=== PATIENT | male | born 1950 | race Caucasian/White ===

== ENCOUNTER 2019-03-15 06:58 | Inpatient (IN) | payer MEDICARE, OTHER ==
--- NOTE | 2019-03-11 11:12 | HPE ---
DATE OF ADMISSION: 03/15/2019 ATTENDING PHYSICIAN: Dr. Earl Zabala CHIEF COMPLAINT: Right knee pain and stiffness. HISTORY: The patient is a 68-year-old male with progressively worsening right knee pain and stiffness. He has failed to improve with conservative measures. He continues to have symptoms with weightbearing activities and activities of daily living. The patient has consented for an elective right total knee arthroplasty with Dr. Zabala for his continued symptoms. Medical optimization completed with Dr. Ryan Gonzalez and was available for review. CURRENT MEDICATIONS: - amlodipine 10 mg daily - glipizide 5 mg daily - cranberry 500 mg daily - fish oil 1000 mg daily - Keflex 500 mg daily - nystatin/triamcinolone cream twice daily as needed. ALLERGIES: SULFA DRUGS. CHRONIC MEDICAL CONDITIONS: Diabetes. Hypertension. History of peripheral stem cell transplant. Hyperlipidemia. Benign prostatic hyperplasia. PAST SURGICAL HISTORY: Hernia repair. Skin removal for cancerous lesion on scalp. Right total hip arthroplasty. SOCIAL HISTORY: The patient is a nonsmoker and occasionally uses alcohol. He does live at home with spouse. REVIEW OF SYSTEMS: The patient denies fevers, chills, nausea, vomiting or diarrhea. Denies chest pain, shortness of breath, lightheadedness, dizziness or headaches. Denies any abdominal pain. Denies any recent upper respiratory or urinary tract infection symptoms. The patient does continue to have right knee pain with weightbearing activities and activities of daily living. PHYSICAL EXAMINATION: GENERAL: Well-nourished, well-developed male in no apparent distress. He is alert, oriented and cooperative. Mood and affect are appropriate. VITAL SIGNS: Height 5 feet 10 inches, weight 246 pounds, temperature 97.3, blood pressure 140/72, heart rate 62, respirations 18. NECK: Supple without lymphadenopathy. HEART: Regular rate and rhythm. LUNGS: Clear to auscultation bilaterally. ABDOMEN: Bowel sounds are present. Abdomen is soft and nontender to palpation. MUSCULOSKELETAL: Right knee exhibits no gross abnormalities. There is no tenderness to palpation. The patient has full extension of the right knee but can only flex to approximately 100 degrees. Right lower extremity strength is 5/5. No hip irritability elicited with range of motion testing. The patient's calf is soft, nontender to palpation with no palpable cords noted. He is neurovascularly intact distally. LABORATORY DATA: Chest x-ray: No acute cardiopulmonary disease, chronic obstructive pulmonary disease (COPD). EKG: Sinus rhythm. Prothrombin time 14.1, INR 1.12. Complete blood count: ESR elevated at 27, WBC 9.5, RBC 4.66, hemoglobin 14.6, hematocrit 42.5, platelets 206. Comprehensive metabolic profile: Fasting glucose elevated at 146, BUN 16, creatinine 0.84, GFR greater than 60, sodium 142, potassium 3.5, chloride 106, carbon dioxide 30, anion gap decreased at 6, calcium 9.2, AST 24, ALT 42, alkaline phosphatase 70, total bilirubin 0.5, total protein 7.1, albumin 3.7, albumin-globulin ratio 1.09. IMPRESSION: Right knee osteoarthritis with x-rays notable for end-stage degenerative changes. PLAN: The patient has consented for an elective right total knee arthroplasty with Dr. Zabala for his continued symptoms. Medical optimization completed with Dr. Gonzalez. Reviewed pre- and postoperative instructions to include but not limited to need to be nothing by mouth after midnight, length of stay, when to stop anti-inflammatories, aspirin and fish oil in addition to importance of following primary bullet maker recommendations for stopping anticoagulants and the primary health care legal assistant recommendations for how to take care of daily medications. PIPE
[2019-03-15] VITALS (7 sets, daily range): BP systolic 143–158; BP diastolic 79–90
[~2019-03-15] VITALS: Ht 179.1 cm; Wt 108.9 kg
[~2019-03-15 06:58] MED LIST: ACETAMINOPHEN 500 MG TAB PO ONE; AMLO10TA5 PO; BAYE325T16 PO; CRAN400C PO; FISH1000 PO; GLIP5TAB20 PO; IBUP200C25 PO; LIDOCAINE 1% MDV 20ML VIAL SQ PRN; LR 1,000 ML IV ONE; METF500T13 PO; MULTCAP PO; SM S160C PO; ceFAZolin SOD 2 GM in IV 1 EA IV ONE
[2019-03-15] MEDS ORDERED: EPINEPHrine INJ 1 MG/ML 1ML VIAL As Ordered ONE (07:04)
[2019-03-15] MEDS ORDERED: ceFAZolin 1GM INJ (J0690 PER 500MG) As Ordered ONE (07:04)
[2019-03-15] MEDS ORDERED: BUPIVACAINE HCL 0.25% 10 ML VIAL As Ordered ONE (07:04)
[2019-03-15] MEDS ORDERED: TRANEXAMIC ACID 100 MG/ML 10ML VIAL As Ordered ONE (07:04)
[2019-03-15] MEDS ORDERED: BUPIVACAINE LIPOSOME/PF 1.3% 20ML VIAL (13.3MG/ML)(EXPAREL)(C9290 PER1MG) As Ordered ONE (07:05)
[2019-03-15] MEDS ORDERED: LIDOCAINE 2% INJ 100 MG/5 ML SDV (FOR ANES.) As Ordered ONE (08:29)
[2019-03-15] MEDS ORDERED: ROCURONIUM BROMIDE 50 MG/5 ML VIAL As Ordered ONE (08:29)
[2019-03-15] MEDS ORDERED: PROPOFOL 500 MG/50 ML VIAL As Ordered ONE (08:30)
[2019-03-15] MEDS ORDERED: MIDAZOLAM INJ 2 MG/2 ML VIAL (J2250) As Ordered ONE ×2 (08:30→09:30)
[2019-03-15] MEDS ORDERED: fentaNYL 100 MCG/2 ML INJECTION (J3010) As Ordered ONE ×3 (08:31→12:41)
[2019-03-15] MEDS ORDERED: ONDANSETRON 4MG/2ML VIAL (J2405) As Ordered ONE (08:32)
[2019-03-15] MEDS ORDERED: dexameTHASONE 4 MG/ML 1ML VIAL (J1100) As Ordered ONE (08:32)
[2019-03-15] MEDS ORDERED: PROPOFOL 200 MG/20 ML VIAL As Ordered ONE (08:39)
[2019-03-15] MEDS ORDERED: MIDAZOLAM INJ 2 MG/2 ML VIAL (J2250) IV ONE ×2 (10:00→10:15)
[2019-03-15] MEDS ORDERED: fentaNYL 100 MCG/2 ML INJECTION (J3010) IV ONE ×2 (10:00→10:15)
[2019-03-15] MEDS ORDERED: SUGAMMADEX SODIUM 500 MG/5 ML VIAL (BRIDION) As Ordered ONE (10:57)
[2019-03-15] MEDS ORDERED: KETOROLAC 60 MG/2 ML VIAL (J1885) As Ordered ONE (10:57)
[2019-03-15] MEDS ORDERED: ACETAMINOPHEN 1000MG 100ML IV BTL (OFIRMEV) (J0131 PER 10MG) As Ordered ONE (10:57)
[2019-03-15] MEDS ORDERED: METHOCARBAMOL 1,000 MG/10 ML VIAL (J2800) As Ordered ONE (10:57)
[2019-03-15] MEDS ORDERED: ROPIvacaine 0.5% 30 ML INJECTION (J2795 PER 1MG) ONE (12:04)
[2019-03-15] MEDS ORDERED: EPINEPHrine INJ 1 MG/ML 1ML VIAL ONE (12:04)
[2019-03-15] MEDS ORDERED: dexameTHASONE 10 MG/1 ML VIAL PRES.FREE (J1100) ONE (12:04)
[2019-03-15] MEDS: fentaNYL 100 MCG/2 ML INJECTION (J3010) IV PRN ×4 (12:44→13:01)
[2019-03-15] MEDS ORDERED: MORPHINE 4 MG/ML 1ML VIAL/SYRINGE (J2270) IV PRN (12:45)
[2019-03-15] MEDS ORDERED: MORPHINE 2 MG/ML 1ML VIAL (J2270) IV PRN ×2 (12:45)
[2019-03-15] MEDS ORDERED: ACETAMINOPHEN TAB 650MG DOSE (2X325MG) PO PRN (12:45)
[2019-03-15] MEDS ORDERED: ONDANSETRON 4MG/2ML VIAL (J2405) IV PRN (12:45)
[2019-03-15] MEDS ORDERED: METOCLOPRAMIDE INJ 10MG/2ML VIAL (J2765) IV PRN (12:45)
[2019-03-15] MEDS ORDERED: LR 1,000 ML IV SCH (12:45)
[2019-03-15] MEDS ORDERED: PERCOCET 5MG/325MG TAB PO PRN (12:45)
--- NOTE | 2019-03-15 13:06 | REP ---
Right knee: Three views. History: Postop. Findings: The patient is status post right knee arthroplasty. Anterior skin stacey are seen. Patellar, femoral, and tibial prosthetic components are well aligned. There is periarticular soft-tissue emphysematous changes. Impression: Status post right knee arthroplasty. Electronically Signed by Naveen Gillis MD 03/15/2019 12:58 P
[2019-03-15] MEDS: LR 1,000 ML IV SCH (14:06)
--- NOTE | 2019-03-15 16:09 | HPEPDOC ---
General Date of Admission Mar 15, 2019 at 06:58 Date of Service: Mar 15, 2019 Chief Complaint The patient is a 68-year-old male admitted with a reason for visit of Osteoarthritis Right Knee. History of Present Illness Consultation report: Consult requested by orthopedics, Dr Earl Pollard Consult for management of medical commorbidities. HPI. 68 year old male admitted to the orthopedic service for elective right total knee arthroplasty for advanced osteoarthritis. Surgery was uneventful. Hospitalist is consulted for management of medical commorbidities. patient complains of some pain at the right knee at the surgical site, dull aching in type about 2/10 says does not need anything right now. Denies any chest pain or sob, denies any nausea or vomiting. Home Medications Scheduled Amlodipine Besylate (Amlodipine Besylate) 10 Mg Tablet, 10 MG PO DAILY, (Report ed) Aspirin (Aspirin) 325 Mg Tablet, 325 MG PO DAILY, (Reported) Cranberry (Cranberry) 400 Mg Capsule, 400 MG PO DAILY, (Reported) Glipizide (Glipizide ER) 5 Mg Tab.er.24, 5 MG PO BID, (Reported) Metformin HCl (Metformin HCl) 500 Mg Tablet, 500 MG PO BID, (Reported) Multivitamin (Multivitamins) 1 Each Capsule, 1 CAP PO DAILY, (Reported) [place]-3 Fatty Acids/Fish Oil (Fish Oil 1,000 mg Capsule) 1 Each Capsule, 2,000 MG PO DAILY, (Reported) Saw [place] (Saw Hixton) 160 Mg Capsule, 160 MG PO DAILY, (Reported) Scheduled PRN Ibuprofen (Ibuprofen) 200 Mg Capsule, 200 MG PO PRN PRN for PAIN, (Reported) Allergies Coded Allergies: Sulfa (Sulfonamide Antibiotics) (Verified Allergy, Intermediate, rash, 02/26/19) Past Medical History Medical History Diabetes. Hypertension. Basal cell cancer of scalp Hyperlipidemia. Benign prostatic hyperplasia. Surgical History Hernia repair. Skin removal for cancerous lesion on scalp. Right total hip arthroplasty. Family History Significant Family History: Hypertension (mother), Lung disease (mother) Social History * Smoker: Denies Alcohol: occationally Drugs: denies A-FIB/CHADSVASC A-FIB History Current/History of A-Fib/PAF?: No Review of Systems Constitutional: Denies: Chills, Fever, Night Sweats Eyes: Denies: Pain, Vision change ENT: Denies: Head Aches, Ear Pain, Dysphagia Skin: Denies: Rash, Lesions, Breakdown Pulmonary: Denies: Dyspnea, Cough Cardiovascular: Denies: Chest Pain, Palpitations, Orthopnea, Paroxysmal Noc. Dyspnea, Edema, Lt Headedness, Other Symptoms Gastrointestinal: Denies: Nausea, Vomiting, Abdominal Pain, Diarrhea Genitourinary: Denies: Dysuria, Frequency, Incontinence, Retention Musculoskeletal: Reports: Joint Pain Neurological: Denies: Weakness, Numbness, Change in speech, Confusion Physical Examination General Exam: Positive: Alert, Cooperative, No Acute Distress Eye Exam: Positive: PERRLA, Conjunctiva & lids normal, EOMI; Negative: Sclera icteric ENT Exam: Positive: Atraumatic, Mucous membr. moist/pink, Pharynx Normal Neck Exam: Positive: Supple; Negative: JVD, thyromegaly Chest Exam: Positive: Clear to auscultation, Normal air movement Heart Exam: Positive: Rate Normal, Regular Rhythm, Normal S1, Normal S2; Negative: Murmurs, Rubs Abdomen Exam: Positive: Normal bowel sounds, Soft; Negative: Tenderness, Hepatospenomegaly Extremity Exam: Positive: Normal pulses; Negative: Clubbing, Cyanosis, Edema Skin Exam: Positive: Nl turgor and temperature; Negative: Breakdown, Lesion Neuro Exam: Positive: Normal Speech, Strength at 5/5 X4 ext, Normal Tone Vital Signs Vital Signs Date Time Temp Pulse Resp B/P (MAP) Pulse Ox O2 Delivery O2 Flow Rate FiO2 03/15/19 12:46 69 16 154/86 (108) 97 Nasal Cannula 3 03/15/19 12:16 97.6 Laboratory Data Labs 24H Laboratory Tests 2 03/15/19 08:29: Bedside Glucose (Misc Panel) 137H Assessment/Plan Right Total knee replacement for advanced osteoarthritis Pain control and dvt prophylaxis as per ortho PT and OT Hypertesion cotninue home meds DIabetes hold metformin in hospital can b restarted on discharge continue glipizide lispro as per sliding scale. BPH not on any meds Plan / VTE VTE Prophylaxis Ordered?: Yes JYOTI PAVON MD Mar 15, 2019 13:00
[2019-03-15] MEDS ORDERED: GLUCAGON FOR INJ 1 MG VIAL (J1610) SC PRN (16:15)
[2019-03-15] MEDS ORDERED: GLUCOSE 4 GM CHEW TABLET PO PRN (16:15)
[2019-03-15] MEDS ORDERED: DEXTROSE 50% 50 ML SYRINGE IV PRN (16:15)
[2019-03-15] MEDS: PERCOCET 5MG/325MG TAB PO PRN (17:56)
[2019-03-15] MEDS: HumaLOG INSULIN (NovoLOG) PER UNIT SC SCH (17:57)
[2019-03-15] MEDS: ceFAZolin SOD 2 GM in IV 1 EA IV SCH (18:03)
--- NOTE | 2019-03-15 20:12 | RO ---
DATE OF PROCEDURE: 03/15/2019 PREPROCEDURE DIAGNOSIS: Right knee degenerative arthritis. POSTPROCEDURE DIAGNOSIS: Right knee degenerative arthritis. PROCEDURE: Right total knee arthroplasty using a size cruciate-retaining femoral component, size 7 tibial tray with a 5 mm rotating platform polyethylene insert and a 35 mm polyethylene button. All the components were cemented. Prosthesis was made by [employer]. SURGEON: Dr. Aaron Zabala IMPROVEMENT SPEC: Ms. Amparo Romero ANESTHESIA: Spinal with right femoral nerve block. COMPLICATIONS: None. ESTIMATED BLOOD LOSS: 20 mL. SPECIMENS: Joint surface. DESCRIPTION OF PROCEDURE: Antibiotics were given intravenously preoperatively and then a successful right femoral nerve block, and then a spinal anesthetic was induced. Tourniquet was placed on the right upper thigh and not inflated. Right lower extremity was carefully prepped and draped in the usual sterile fashion, elevated, and after appropriate time-out, tourniquet was inflated. Then, a longitudinal incision was made for a medial parapatellar approach to the knee. Bovie cautery was used to coagulate crossing vessels. Medial parapatellar arthrotomy was performed. Subperiosteal dissection around the proximal, medial, and lateral tibial plateau was performed. The patella was everted, the knee flexed, anterior cruciate ligament (ACL) debrided. Drilled placed down the center of the femoral canal, followed by the intramedullary ruiz, the distal femoral cutting jig set at 5 degree valgus cut at 9 mm resection level for a right knee. It was pinned into position. Distal femoral cut performed. AP sizing jig measured for a size 7. 3 degrees of external rotation dialed in. Pins were placed. 4-in-1 block applied. Anterior, posterior, chamfer cuts performed. The jig for the trochleoplasty was then applied, and the trochleoplasty performed. We then exposed the proximal tibia, using the extramedullary alignment jig for the tibia to estimate being parallel to the mechanical axis of the tibia, referencing off the medial tibial condyle at 4 mm resection level. Block was pinned into position. Extramedullary ruiz was checked for secondary check and appeared to be parallel to the mechanical axis. Proximal tibial osteotomy thus performed. We then placed the lamina middle card tender medially and performed a completion lateral meniscectomy and debridement of the posterolateral osteophytes. We then placed the lamina middle card tender laterally and performed a completion medial meniscectomy, debridement of posteromedial osteophytes. Spacer blocks were then trialed. He was a bit snug both in flexion and in extension, and a bit more medial than lateral. Thus, I did do more of an aggressive soft tissue medial release, and it was still a bit snug both in flexion and in extension, predominantly medially, and I think it is likely because of the sclerosis of the medial tibial condyle. Thus, I elected to take 2 mm of the proximal tibia, the block was reapplied, proximal tibial osteotomy performed. And this allowed us to balance the knee nicely with both a 6 mm and a 5 mm spacer. It was just a little snug both in flexion and extension with a 6, so I elected to go with the 5. We then exposed the proximal tibia, sized for a #7 tibial tray. The block was pinned into position, followed by the reamer and the broach, and then the trial polyethylene was placed, followed by the trial femoral component. Brought the knee into extension, everted the patella, performed a patellar osteotomy, sized for a 35 button. Lug holes drilled. Trial placed and patellofemoral tracking was anatomic. We then drilled the lug holes for the femur, then removed all the trial components. And then we placed Exparel in the subperiosteal tissues around the distal femur and the proximal tibia. Ms. Amparo Romero mixed the cement on the back table as I prepared the bony surfaces for cementing with a copious amount of pulsatile lavage irrigant solution. She was also critical to the success of this difficult surgery by helping with appropriate soft tissue manipulation, helped to manipulate the knee, helped to close the wound, helped prepare the patient, amongst many other tasks to allow me to perform the operation smoothly, efficiently, and safely. Once all the bony surfaces were thoroughly irrigated and dried, we cemented the tibial tray, removed excess cement, placed the polyethylene, cemented the femoral component, removed excess cement, and brought the knee into extension, cemented the patellar button, removed the excess cement and held the knee in extension with a patella clamp in place until the cement hardened. As we were awaiting this, we copiously irrigated out the knee joint again with antibiotic irrigant solution, and then tranexamic acid was placed in the knee. We began closing the apex of the arthrotomy with two #1 PDS sutures, the medial parapatellar area was closed with a #1 PDS suture, then a running #1 Stratafix used to close the capsule. Then, we released the tourniquet. We irrigated between layers, closed the deep subdermal tissues with interrupted #2-0 PDS suture, skin was closed with stacey, covered by an Optifoam and a dry sterile bulky dressing. He was then transferred to the recovery room in stable condition. There were no intraoperative complications.
[2019-03-15] MEDS ORDERED: HumaLOG INSULIN (NovoLOG) PER UNIT SC SCH (21:00)
[2019-03-15] MEDS: glipiZIDE XL 5 MG TABCR PO SCH (21:31)
[2019-03-16] MEDS: LR 1,000 ML IV SCH (01:15)
[2019-03-16 02:00] VITALS: BP 146/78
[2019-03-16] MEDS: ceFAZolin SOD 2 GM in IV 1 EA IV SCH ×2 (03:19→10:39)
[2019-03-16] MEDS: PERCOCET 5MG/325MG TAB PO PRN ×3 (03:25→13:01)
[2019-03-16 06:00] VITALS: BP 104/56
[2019-03-16] MEDS ORDERED: PERC5TAB12 PO (06:01)
[2019-03-16] MEDS ORDERED: XARE10TA PO (06:01)
[2019-03-16 06:09] VITALS: BP 135/87
[2019-03-16 06:56] LABS: HEMATOCRIT 37.8 % (42.0-52.0); HEMOGLOBIN 12.4 g/dl (13.5-17.5); MEAN CORPUSCULAR HGB CONC 32.8 g/dl (32.0-36.5); MEAN CORPUSCULAR VOLUME 91.3 fl (80.0-96.0); PLATELET COUNT, AUTOMATED 222 10^3/uL (150-450); RED BLOOD COUNT 4.14 10^6/uL (4.30-6.10); WHITE BLOOD COUNT 14.2 10^3/uL (4.0-10.0)
[2019-03-16 07:21] LABS: ALBUMIN 3.1 GM/DL (3.2-5.2); ALT/SGPT 33 U/L (12-78); BILIRUBIN,TOTAL 0.5 MG/DL (0.2-1.0); BLOOD UREA NITROGEN 21 MG/DL (7-18); CALCIUM LEVEL 9.1 MG/DL (8.8-10.2); CARBON DIOXIDE LEVEL 24 MEQ/L (21-32); CHLORIDE LEVEL 104 MEQ/L (98-107); CREATININE FOR GFR 0.92 MG/DL (0.70-1.30); GLOMERULAR FILTRATION RATE > 60.0 (>49); GLUCOSE, FASTING 135 MG/DL (70-100); SODIUM LEVEL 140 MEQ/L (136-145)
[2019-03-16 08:08] VITALS: BP 135/87
[2019-03-16] MEDS: glipiZIDE XL 5 MG TABCR PO SCH (08:08)
[2019-03-16] MEDS: HumaLOG INSULIN (NovoLOG) PER UNIT SC SCH ×2 (08:08→12:00)
[2019-03-16] MEDS ORDERED: POTASSIUM CHLORIDE 10 MEQ SR TABLET PO ONE (08:15)
[2019-03-16] MEDS ORDERED: MIRALAX *UNIT DOSE* 17GM PACKET PO SCH (09:00)
[2019-03-16] MEDS ORDERED: amLODIPine 10 MG TAB PO SCH (09:00)
[2019-03-16] MEDS ORDERED: MOM 30ML SUSPENSION UDC PO SCH (09:00)
--- NOTE | 2019-03-16 15:27 | IPNPDOC ---
Text Note Date of Service The patient was seen on 03/16/19. NOTE Subjective: -Feels well, looking forward to going home, just finished working with PT and was cleared for home discharge -Concerned about pain control at home Objective: General Exam: Alert, Cooperative, No Acute Distress Eye Exam: PERRLA, Conjunctiva & lids normal, EOMI ENT Exam: Mucous membr. moist/pink, Pharynx Normal Neck Exam: supple, no JVD or thyromegaly Chest Exam: Clear to auscultation, Normal air movement Heart Exam: Rate Normal, Regular Rhythm, Normal S1, Normal S2, no mrg Abdomen Exam: Normal bowel sounds, soft, nontender, nondistended Extremity Exam: no LE edema, WWP Neuro Exam: Normal speech, strength at 5/5 X4 ext Labs: reviewed Assessment/Plan Right Total knee replacement -Pain control and dvt prophylaxis as per ortho -PT and OT cleared for home discharge Hypertension continue home meds Diabetes restart metformin and glipizide at discharge home later today discontinue lispro sliding scale at discharge BPH not on any meds with no complaints of retention Dispo: Being discharged home by ortho today Ezequiel REYES, I+O VS, Ezequiel I+O Laboratory Tests 03/16/19 05:55 Vital Signs Date Time Temp Pulse Resp B/P (MAP) Pulse Ox O2 Delivery O2 Flow Rate FiO2 03/16/19 13:31 18 03/16/19 08:08 76 135/87 03/16/19 06:09 97.9 96 03/16/19 06:00 Room Air 03/15/19 18:26 2.0 I&O- Last 24 Hours up to 6 AM 03/16/19 06:00 Intake Total 3470 ml Output Total 3575 ml Balance -105 ml JACOBY HERNANDEZ MD Mar 16, 2019 15:27
[2019-03-16] MEDS ORDERED: RIVAROXABAN 10 MG TAB (XARELTO) PO SCH (18:00)
--- NOTE | 2019-03-19 19:51 | DSES ---
DATE OF ADMISSION: 03/15/2019 DATE OF DISCHARGE: 03/16/2019 ATTENDING PHYSICIAN: Dr. Earl Zabala ADMISSION DIAGNOSIS: Osteoarthritis, right knee. OTHER DIAGNOSES: 1. Diabetes. 2. Hypertension. 3. Hyperlipidemia. 4. Benign prostatic hypertrophy. DISCHARGE DIAGNOSIS: Osteoarthritis, right knee status post right total knee arthroplasty. OPERATION PERFORMED: Right total knee arthroplasty. HISTORY: A 68-year-old male patient with progressive worsening right knee pain and stiffness. He failed to improve with conservative management. He was admitted for elective knee replacement on the right side. HOSPITAL COURSE: The patient was admitted on the day of surgery and underwent a right total knee arthroplasty which was uneventful. He did well in the postoperative period. His hospital course was without complications. He was up with physical therapy per the protocol and his pain was controlled. On the day of discharge, he was doing well, weightbearing as tolerated on his right lower extremity. He will move his right knee to prevent stiffness. He will use Xarelto 10 mg per the protocol for deep vein thrombosis (DVT) prophylaxis as well as thromboembolic-deterrent (SONY) stockings for 30 days postoperatively for DVT prophylaxis. He will resume his preoperative medications and diet. He was given instructions to include but not limited to wound monitoring and activity limitations. He will use oral pain medications for pain control. He will followup in our office in 10-14 days for surgical followup. Please refer to the medical record further detail.
== END 2019-03-16 13:00 | disposition home or self-care (01) | DRG 470 ==
LOC: M OR 06:58 → M MS5PR 13:40
PROVIDERS: ADMIT Orthopaedic Surgery; ATTEND Orthopaedic Surgery
PROC: 0SRC0J9 Replacement of Right Knee Joint with Synthetic Substitute, Cemented, Open Approach (ICD-10-PCS; principal; 2019-03-15 09:45)
DX: M17.11 Unilateral primary osteoarthritis, right knee (principal); Z94.84 Stem cells transplant status; Z79.899 Other long term (current) drug therapy; E11.9 Type 2 diabetes mellitus without complications; I10 Essential (primary) hypertension; E78.5 Hyperlipidemia, unspecified; N40.1 Benign prostatic hyperplasia with lower urinary tract symptoms; Z85.828 Personal history of other malignant neoplasm of skin; Z96.641 Presence of right artificial hip joint; Z88.2 Allergy status to sulfonamides; Z79.82 Long term (current) use of aspirin; Z79.84 Long term (current) use of oral hypoglycemic drugs

== ENCOUNTER → 2019-12-22 | Outpatient (CLI) | payer MEDICARE, OTHER ==
[~2019-12-22] MED LIST changes: -ACETAMINOPHEN 500 MG TAB PO ONE; -AMLO10TA5 PO; +AMLO1TAB25 PO; +ASPI-1 PO; +ECOT81TA5 PO; -LIDOCAINE 1% MDV 20ML VIAL SQ PRN; -LR 1,000 ML IV ONE; +PERC5TAB12 PO; +XARE10TA PO; -ceFAZolin SOD 2 GM in IV 1 EA IV ONE
== END ==
LOC: M LABSMTC 12:52
PROVIDERS: ATTEND Anesthesiology
DX: Z01.812 Encounter for preprocedural laboratory examination (principal); Z20.828 Contact with and (suspected) exposure to other viral communicable diseases
CPT/HCPCS: C9803; U0003

== ENCOUNTER 2019-12-27 09:11 | Inpatient (IN) | payer MEDICARE, OTHER ==
--- NOTE | 2019-12-24 10:52 | HPE ---
DATE OF ANTICIPATED ADMISSION: 12/27/2019 CHIEF COMPLAINT: Left knee pain and stiffness. HISTORY OF PRESENT ILLNESS: This is a 69-year-old male patient with progressively worsening left knee pain and stiffness. He failed to improve with conservative management. He has pain with weightbearing activities and activities of daily living. He has elected for surgery for his continued symptoms. The patient is consented by Dr. Zabala for an elective left total knee arthroplasty. X-rays notable for end stage degenerative changes of the left knee. Medical optimization with Dr. Gonzalez, not present for review today. ALLERGIES: SULFA DRUGS. CURRENT MEDICATIONS: - Metformin 500 mg one tablet once per day - Amlodipine 10 mg one tablet once per day - Glipizide 5 mg one tablet once per day - [id number]-nwnweqb cranberry oil and fish oil MEDICAL HISTORY: Medical conditions include diabetes, hypertension, history of stem cell transplant, elevated lipids, benign prostatic hypertrophy. SURGICAL HISTORY: Right total knee arthroplasty, hernia repair, hip replacement on the right side. SOCIAL HISTORY: He does not smoke. He occasionally uses alcohol. He is retired. FAMILY HISTORY: Noncontributory. REVIEW OF SYSTEMS: Denies fever or chills. Denies chest pain, shortness of breath, or cough. Denies difficulty breathing. Denies abdominal pain. Denies nausea or vomiting. He denies exposure to COVID-19. Notes persistent pain in his left knee with weightbearing activities and activities of daily living. PHYSICAL EXAMINATION: Physical exam today reveals a well-developed, well-nourished male patient. He ambulates with a limping gait slightly favoring his left side. Exam of the left knee does reveal skin to be intact, no signs of infection around the knee. Skin is intact without erythema, edema, or ecchymosis. Calf is soft, nontender to palpation. No irritability with hip range of motion. On range of motion of the knee he can only flex to about 100. He has complete extension on exam and it is well perfused. Left lower extremity dorsalis pedis and posterior tibial pulses are palpable. Neck is supple without adenopathy or JVD. Lungs are clear to auscultation without rales or wheeze. Heart: Regular rate and rhythm. Abdomen: Bowel sounds are present. Current vital signs: Height 71 inches, weight 258 pounds, temperature 97.1, blood pressure 130/70, respirations 16, pulse 18. LABORATORY DATA: WBC count is 7.6, RBC count 4.6, hemoglobin 14.1, hematocrit 40.8, INR 1.0, glucose 168, BUN 18, creatinine 0.8, sodium 141, potassium 3.6. Chest x-ray: No acute cardiopulmonary disease process noted. EKG not present for review. IMPRESSION: Symptomatic osteoarthritis of the left knee. PLAN: He is consented by Dr. Zabala for a left total knee arthroplasty. We went over his pre and postoperative instructions to include n.p.o. after midnight, what n.p.o. after midnight means. We discussed COVID-19. He should self-quarantine himself until the surgery. We talked about NSAIDs and they need to be discontinued five days prior and will take the medications as directed by his primary, when to take those medications and that should be as directed by his primary. He understands to be on time for the surgery. All his questions were answered. PIPE
[~2019-12-27] VITALS: Ht 177.8 cm; Wt 117.2 kg
[2019-12-27] VITALS (7 sets, daily range): BP systolic 143–164; BP diastolic 79–94; O2SAT 96
[~2019-12-27 09:11] MED LIST changes: -ASPI-1 PO; -ECOT81TA5 PO; +LR 1,000 ML IV ONE
[2019-12-27] MEDS ORDERED: ASPI-1 PO (10:11)
[2019-12-27] MEDS ORDERED: ceFAZolin 2 GM/D5W 50 ML IV BAG (J0690 PER 500MG) As Ordered ONE (10:15)
[2019-12-27] MEDS ORDERED: ACETAMINOPHEN 500 MG TAB As Ordered ONE (10:15)
[2019-12-27] MEDS ORDERED: BUPIVACAINE HCL 0.25% 10ML VIAL As Ordered ONE (10:41)
[2019-12-27] MEDS ORDERED: TRANEXAMIC ACID 100 MG/ML 10ML VIAL As Ordered ONE (10:41)
[2019-12-27] MEDS ORDERED: ceFAZolin 1GM VIAL (J0690 PER 500MG) As Ordered ONE (10:42)
[2019-12-27] MEDS ORDERED: EPINEPHrine INJ 1 MG/ML 1ML AMP As Ordered ONE (10:42)
[2019-12-27] MEDS ORDERED: BUPIVACAINE LIPOSOME/PF 1.3% 20ML VIAL (13.3MG/ML)(EXPAREL)(C9290 PER1MG) As Ordered ONE (10:42)
[2019-12-27] MEDS ORDERED: ceFAZolin SOD 2 GM in IV 1 EA IV ONE (10:45)
[2019-12-27] MEDS ORDERED: ACETAMINOPHEN 500 MG TAB PO ONE (10:45)
[2019-12-27] MEDS ORDERED: fentaNYL 100 MCG/2 ML INJECTION (J3010) As Ordered ONE ×2 (11:08→11:12)
[2019-12-27] MEDS ORDERED: propofoL 200 MG/20 ML VIAL As Ordered ONE (11:08)
[2019-12-27] MEDS ORDERED: LIDOCAINE 2% 100MG/5ML SDV (FOR ANES.) As Ordered ONE (11:08)
[2019-12-27] MEDS ORDERED: MIDAZOLAM INJ 2MG/2ML VIAL (J2250 PER 1MG) As Ordered ONE ×2 (11:08→11:12)
[2019-12-27] MEDS ORDERED: dexameTHASONE 4 MG/ML 1ML VIAL (J1100 PER 1MG) As Ordered ONE (11:22)
[2019-12-27] MEDS ORDERED: ROCURONIUM BROMIDE 50 MG/5 ML VIAL As Ordered ONE ×2 (11:22→13:22)
[2019-12-27] MEDS ORDERED: fentaNYL 100 MCG/2 ML INJECTION (J3010) IV SCH (12:00)
[2019-12-27] MEDS ORDERED: MIDAZOLAM INJ 2MG/2ML VIAL (J2250 PER 1MG) IV ONE (12:00)
[2019-12-27] MEDS ORDERED: ONDANSETRON 4MG/2ML VIAL As Ordered ONE (13:13)
[2019-12-27] MEDS ORDERED: ACETAMINOPHEN 1000MG 100ML IV BTL (OFIRMEV) (J0131 PER 10MG) As Ordered ONE (13:14)
[2019-12-27] MEDS ORDERED: HYDROmorphone HCL 2 MG/ML 1ML VIAL (J1170) As Ordered ONE (13:15)
[2019-12-27] MEDS ORDERED: dexameTHASONE 10MG/1ML VIAL PRES.FREE (J1100 PER 1MG) ONE (13:43)
[2019-12-27] MEDS ORDERED: ROPIvacaine 0.5% 30ML INJECTION (J2795 PER 1MG) ONE (13:43)
[2019-12-27] MEDS ORDERED: EPINEPHrine INJ 1 MG/ML 1ML AMP ONE (13:43)
[2019-12-27] MEDS ORDERED: ePHEDrine SULFATE 25 MG/5 ML(5MG/ML) SYRINGE As Ordered ONE (13:55)
[2019-12-27] MEDS ORDERED: GLYCOPYRROLATE INJ 0.2 MG/ML 2 ML VIAL As Ordered ONE (14:03)
[2019-12-27] MEDS ORDERED: NEOSTIGMINE 10MG/10ML VIAL (J2710 PER 0.5MG) As Ordered ONE (14:03)
[2019-12-27] MEDS ORDERED: SUGAMMADEX SODIUM 500 MG/5 ML VIAL (BRIDION) As Ordered ONE (14:16)
[2019-12-27] MEDS ORDERED: PERCOCET 5MG/325MG TAB PO PRN ×2 (15:00)
[2019-12-27] MEDS ORDERED: LR 1,000 ML IV SCH ×2 (15:00)
[2019-12-27] MEDS ORDERED: ACETAMINOPHEN TAB 650MG DOSE (2X325MG) PO PRN (15:00)
[2019-12-27] MEDS ORDERED: METOCLOPRAMIDE INJ 10MG/2ML VIAL (J2765 PER 1) IV PRN (15:00)
[2019-12-27] MEDS ORDERED: MORPHINE 4 MG/ML 1ML VIAL/SYRINGE (J2270) IV PRN (15:00)
[2019-12-27] MEDS ORDERED: MORPHINE 2 MG/ML 1ML VIAL (J2270) IV PRN ×2 (15:00)
[2019-12-27] MEDS ORDERED: fentaNYL 100 MCG/2 ML INJECTION (J3010) IV PRN (15:00)
[2019-12-27] MEDS ORDERED: ONDANSETRON 4MG/2ML VIAL IV PRN ×2 (15:00)
--- NOTE | 2019-12-27 15:04 | REP ---
INDICATION: POST OP IN PACU Status post knee arthroplasty. COMPARISON: None. TECHNIQUE: AP and cross-table lateral views left knee. FINDINGS: Normal appearance and positioning to the femoral and tibial components. Overlying postsurgical changes and skin stacey noted. IMPRESSION: Status post left knee replacement. Satisfactory positioning. <Electronically signed by Miquel Lucero > 12/27/19 1500
[2019-12-27] MEDS: PERCOCET 5MG/325MG TAB PO PRN (15:37)
[2019-12-27] MEDS ORDERED: GLUCOSE 4GM CHEW TABLET PO PRN (17:00)
[2019-12-27] MEDS ORDERED: SENOKOT S TAB PO PRN (17:00)
[2019-12-27] MEDS ORDERED: DEXTROSE 50% 50 ML SYRINGE IV PRN (17:00)
[2019-12-27] MEDS ORDERED: GLUCAGON INJ 1MG VIAL SC PRN (17:00)
[2019-12-27] MEDS ORDERED: MIRALAX *UNIT DOSE* 17GM PACKET PO PRN (17:00)
[2019-12-27] MEDS: HumaLOG INSULIN (NovoLOG) PER UNIT SC SCH (17:34)
[2019-12-27] MEDS: metFORMIN (GLUCOPHAGE) 500 MG TAB PO SCH (17:34)
--- NOTE | 2019-12-27 18:48 | CR.PDOC ---
General Date of Consultation: Dec 27, 2019 Consultation REASON FOR CONSULTATION/CHIEF COMPLAINT: Management of chronic diabetes and hypertension HISTORY OF PRESENT ILLNESS: 69-year-old male with history diabetes, hypertension, status post on stem cell transplant, hypercholesterolemia, BPH, admitted for left hip arthroplasty with no other medical complaints. Patient has 8 out of 10 pain and has recently been given Percocet and does not want any new pain medications despite systolic pressure 168/92. Patient denies any chest pain, pressure, tightness, headache, changes in vision, diplopia, lightheadedness, dizziness. Other acute medical complaints ALLERGIES: Please see below. HOME MEDICATIONS: Please see below. PAST MEDICAL HISTORY: Berry's, hypertension, history stem cell transplant, hypercholesterolemia, BPH PAST SURGICAL HISTORY: Right total knee hernia repair, hip replacement on the right FAMILY HISTORY: Father had a blood clot. Mother had high blood pressure, both SOCIAL HISTORY: no recreational drug use, alcohol or cigarette use. Retired safety trainer previously [employer] REVIEW OF SYSTEMS: Point systems review negative from positive findings in HPI PHYSICAL EXAMINATION: VITAL SIGNS: Please see below. GENERAL APPEARANCE: Cyanosis or pallor. Speaks in full sentences without conversational dyspnea awake, alert, oriented 3. Face is symmetric HEENT: Moist mucous membranes, anicteric, no jaundice, no JVD or thyromegaly. No cervical lymphadenopathy RESPIRATORY: Air entry is equal bilaterally. Clear to auscultation wheezing or rales CARDIOVASCULAR: S1, S2 regular rate rhythm. Nondisplaced point of maximal impulse no murmurs, rubs or gallops ABDOMEN: Obese, soft, nontender, nondistended, positive bowel sounds 4 quadrants EXTREMITIES: Left knee bandaged. , No cyanosis Or clubbing LABORATORY DATA: Please see below. ASSESSMENT/PLAN: 69-year-old male with history diabetes, hypertension, status post on stem cell transplant, hypercholesterolemia, BPH, admitted for left knee arthroplasty due to degenerative joint disease limiting activities of daily living with no other medical complaints. Patient has 8 out of 10 pain and has recently been given Percocet and does not want any new pain medications despite systolic pressure 168/92. Patient denies any chest pain, pressure, tightness, headache, changes in vision, diplopia, lightheadedness, dizziness. Other acute medical complaints. Left knee osteoarthritis status post left knee arthroplasty . Hypertension, uncontrolled. Diabetes Hypercholesterolemia Obesity, BMI of 37.1. Benign prostatic hypertrophy. Dyslipidemia -Consistent carbohydrate diet. Resume home medications. Additional Norvasc 10mg x1 now .to control blood pressure. Postop management per primary team, including DVT prophylaxis. dressing changes, pain management and bowel regimen. Hypoglycemic protocol and fingersticks every before meals at bedtime activity as tolerated. Physical therapy evaluation in the morning. Vital Signs/I&O Vital Signs Date Time Temp Pulse Resp B/P (MAP) Pulse Ox O2 Delivery O2 Flow Rate FiO2 12/27/19 18:00 99.1 88 17 164/94 (117) 98 Nasal Cannula 2.0 Laboratory Data Labs 24H Laboratory Tests 2 12/27/19 10:30: Bedside Glucose (Misc Panel) 176H 12/27/19 17:23: Bedside Glucose (Misc Panel) 231H Allergies Coded Allergies: Sulfa (Sulfonamide Antibiotics) (Verified Allergy, Intermediate, rash, 12/27/19) Home Medications Scheduled Amlodipine Besylate (Amlodipine Besylate) 10 Mg Tablet, 10 MG PO DAILY, (Reported) Aspirin (Aspirin) 325 Mg Tablet, 325 MG PO DAILY, (Reported) Cranberry (Cranberry) 400 Mg Capsule, 400 MG PO DAILY, (Reported) Glipizide (Glipizide ER) 5 Mg Tab.er.24, 5 MG PO BID, (Reported) Metformin HCl (Metformin HCl) 500 Mg Tablet, 500 MG PO BID, (Reported) Multivitamin (Multivitamins) 1 Each Capsule, 1 CAP PO DAILY, (Reported) AURA NGUYEN MD Dec 27, 2019 18:48
[2019-12-27] MEDS ORDERED: amLODIPine 10 MG TAB PO ONE (19:00)
[2019-12-27] MEDS: ceFAZolin SOD 2 GM in IV 1 EA IV SCH (20:03)
[2019-12-27] MEDS ORDERED: HumaLOG INSULIN (NovoLOG) PER UNIT SC SCH (21:00)
[2019-12-28 02:00] VITALS: BP 139/82
[2019-12-28] MEDS: ceFAZolin SOD 2 GM in IV 1 EA IV SCH ×2 (04:23→11:25)
[2019-12-28 06:00] VITALS: BP 120/55
[2019-12-28] MEDS ORDERED: PERC5TAB12 PO (06:03)
[2019-12-28] MEDS ORDERED: ECOT81TA5 PO ×2 (06:03→06:34)
[2019-12-28 06:14] LABS: HEMATOCRIT 39.5 % (42.0-52.0); HEMOGLOBIN 13.4 g/dl (13.5-17.5); MEAN CORPUSCULAR HEMOGLOBIN 30.4 pg (27.0-33.0); MEAN CORPUSCULAR HGB CONC 33.9 g/dl (32.0-36.5); MEAN CORPUSCULAR VOLUME 89.6 fl (80.0-96.0); PLATELET COUNT, AUTOMATED 240 10^3/uL (150-450); RED BLOOD COUNT 4.41 10^6/uL (4.30-6.10); WHITE BLOOD COUNT 14.2 10^3/uL (4.0-10.0)
[2019-12-28 06:48] LABS: ALBUMIN 3.3 GM/DL (3.2-5.2); ALT/SGPT 74 U/L (12-78); BILIRUBIN,TOTAL 0.5 MG/DL (0.2-1.0); BLOOD UREA NITROGEN 17 MG/DL (7-18); CALCIUM LEVEL 9.2 MG/DL (8.8-10.2); CARBON DIOXIDE LEVEL 24 MEQ/L (21-32); CHLORIDE LEVEL 102 MEQ/L (98-107); CREATININE FOR GFR 0.97 MG/DL (0.70-1.30); GLOMERULAR FILTRATION RATE > 60.0 (>49); GLUCOSE, FASTING 207 MG/DL (70-100); POTASSIUM SERUM 3.4 MEQ/L (3.5-5.1); SODIUM LEVEL 136 MEQ/L (136-145); TOTAL PROTEIN 7.4 GM/DL (6.4-8.2)
[2019-12-28] MEDS: HumaLOG INSULIN (NovoLOG) PER UNIT SC SCH ×2 (07:41→11:27)
[2019-12-28 07:42] VITALS: BP 158/92
[2019-12-28] MEDS: metFORMIN (GLUCOPHAGE) 500 MG TAB PO SCH (07:42)
[2019-12-28] MEDS: PERCOCET 5MG/325MG TAB PO PRN (07:43)
[2019-12-28] MEDS ORDERED: POTASSIUM CHLORIDE 10 MEQ SR TABLET PO ONE (08:00)
[2019-12-28] MEDS ORDERED: ASPIRIN 81 MG CHEW TABLET PO SCH (09:00)
[2019-12-28] MEDS ORDERED: amLODIPine 10 MG TAB PO SCH (09:00)
[2019-12-28] MEDS ORDERED: MULTIVITAMINS/MINERALS THERAP 1 TAB PO SCH (09:00)
[2019-12-28] MEDS ORDERED: glipiZIDE XL 5 MG TABCR PO SCH (09:00)
--- NOTE | 2019-12-28 10:15 | RO ---
DATE OF OPERATION: 12/27/2019 PREOPERATIVE DIAGNOSIS: Left knee degenerative arthritis. POSTOPERATIVE DIAGNOSIS: Left knee degenerative arthritis. PROCEDURE: Left total knee arthroplasty using a size 7 cruciate-retaining femoral component cemented, size 7 tibial tray, 5 mm polyethylene rotating insert, 30 mm polyethylene button. All components were cemented. Prosthesis was made by [employer], it was an Att[employer] knee. SURGEON: Dr. Aaron Zabala. FUSING MACHINE OPERATOR: Mr. Armando Baron ANESTHESIA: Spinal with left femoral nerve block. COMPLICATIONS: None. SPECIMENS: Joint surface. ESTIMATED BLOOD LOSS: Less than 20 mL. PROCEDURE: Antibiotics were given intravenously preoperatively. A successful left femoral nerve block and then a spinal anesthetic were induced. The tourniquet was placed on the left upper thigh and not inflated. The left lower extremity was carefully prepped and draped in the usual sterile fashion and then the leg was elevated. After an appropriate time out the tourniquet was inflated. A longitudinal incision was made for a medial parapatellar approach to the knee. Bovie cautery was used to coagulate crossing vessels. Medial parapatellar arthrotomy was performed. Subperiosteal dissection around the proximal medial and lateral tibial plateaus was performed. The patella was everted and flexed the knee and debrided the ACL. Drill was placed down the center of the femoral canal, followed by the intramedullary ruiz. The distal femoral cutting jig set at 9 mm resection level at 5 degrees valgus for a left knee. The block was pinned into position. Distal femoral cut was performed. AP sizing jig measured for a size 7. We then dialed in 3 degrees of external rotation and then the pins were placed followed by the four-in-one block and then the anterior, posterior and chamfer cuts were performed. The notchplasty jig was applied and notchplasty performed. We then exposed the proximal tibia and used extramedullary alignment jig to estimate being parallel to the mechanical axis referencing off the medial tibial condyle at 4 mm resection level. Secondary check with the extramedullary ruiz confirmed that we appeared to be parallel to the mechanical axis tibia with appropriate slope. The block was then pinned into position and then the proximal tibial osteotomy was performed. We then placed the lamina stone gang sawyer laterally and performed a completion medial meniscectomy and debridement of the posterior and medial osteophytes and then placed the lamina stone gang sawyer medially and performed a completion lateral meniscectomy and debridement of the posterolateral osteophytes. The spacer block at 5 mm actually seemed to fit symmetrically both in flexion and extension. There was some increased tightness medially thus I did do a bit of a posteromedial release with Bovie cautery to help correct that. I then exposed the proximal tibia and sized for a 7 tibial tray, the appropriate amount of external rotation was dialed in. The tray was secured and then the drill and broach performed and then the 5 mm rotating platform trial tray applied and then we tried to place the femoral component but we found that the femoral component would not fit, it was too snug and seemed to be relatively symmetric between the medial and lateral sides. I removed the tibial tray at this point and the femoral component would fit perfectly, that is the cuts were perfect. Thus I felt that there was global symmetric tightness in flexion as I felt a bit more tibia to be removed would be ideal. Thus, I reapplied the tibial cutting jig with the previous pinholes using the batwing to make sure that we aligned it properly and then additional 2 mm cut was performed on the proximal tibia. I reapplied the broach to be sure it fit snugly, applied the trial polyethylene and then this time the femoral component would fit nicely. We brought the knee into extension, it was very stable to varus/valgus stress testing both in extension and in flexion. We then held the knee in full extension, everted the patella and performed a patellar osteotomy using microsagittal saw. Trial at 38 mm seemed to fit the best thus the lug holes were drilled and the trial was placed and the patellofemoral tracking was noted to be anatomic. There was good stability once again in flexion and extension and varus/valgus stress testing. I drilled the lug holes for the femur and removed all the trial components. Exparel was then placed in the subperiosteal tissues around the distal femur and the proximal tibia. Then Mr. Armando Baron mixed the cement on the back table as I prepared the bony surfaces for cementing with a copious amount of pulsatile lavage irrigant solution. Mr. Baron was also critical to the success of this difficult procedure by helping to manipulate the knee, helped to prepare the patient, helped to apply appropriate soft tissue retraction, helped to mix the cement, helped to close the wound amongst many other tasks to allow me to perform the operation smoothly, efficiently, and safely. Once all of the bony surfaces were thoroughly dried I cemented the tibial tray, removing excess cement and then placed the polyethylene and cemented the femoral component, removed excess cement, brought the knee out in extension, cemented the patellar button, held it with a clamp with the knee in full extension until the cement hardened. As we were waiting this, we continued to pulsatile lavage irrigate out the knee joint and then instilled Tranexamic Acid. We then began closing the apex of the arthrotomy with two #1 PDS sutures. The medial parapatellar area was closed with #1 PDS suture and a running double-armed Stratafix used to close the capsule. The tourniquet was released at this point. We irrigated again between layers, closed the deep subdermal tissue with interrupted 2-0 PDS suture. The skin was closed with stacey, covered by an Optifoam and dry sterile bulky dressing. He was then transferred to the recovery room in stable condition. There were no intraoperative complications. PIPE
[2019-12-28] MEDS ORDERED: PERCOCET 5MG/325MG TAB PO PRN (12:45)
--- NOTE | 2020-01-04 07:43 | DS ---
DATE OF ADMISSION: 12/27/2019 DATE OF DISCHARGE: 12/28/2019 ADMITTING DIAGNOSIS: Osteoarthritis left knee. OTHER DIAGNOSES: * Diabetes. * Hypertension. * Stem cell transplant. * Elevated cholesterol. * Benign prostatic hypertrophy. DISCHARGE DIAGNOSES: Osteoarthritis left knee status post left total knee arthroplasty. ATTENDING: Earl Zabala MD OPERATION PERFORMED: Left total knee arthroplasty. HISTORY: This is a 69-year-old male patient with progressively worsening left knee pain and stiffness who failed to improve with conservative management. He was admitted for elective knee replacement on the left side. HOSPITAL COURSE: The patient was admitted on the day of surgery and underwent a left total knee arthroplasty which was uneventful. He did well in the postoperative period. His hospital course was without complications. He is up with physical therapy per the protocol. His pain was controlled on the day of discharge. He is weightbearing as tolerated on his left lower extremity. He may use Aspirin 81 mg twice a day for deep venous thrombosis (DVT) prophylaxis per the protocol. He will also use SONY stockings for 30 days postoperatively for DVT prophylaxis. He will resume his preoperative medications and diet. He as given instructions to include but not limited to wound monitoring and activity limitations. He will follow up in our office in 10 to 14 days for surgical followup. Please refer to the medical record for further details. PIPE
== END 2019-12-28 13:00 | disposition home or self-care (01) | DRG 470 ==
LOC: M OR 09:11 → M MS5PR 16:25
PROVIDERS: ADMIT Orthopaedic Surgery; ATTEND Orthopaedic Surgery
PROC: 0SRD0J9 Replacement of Left Knee Joint with Synthetic Substitute, Cemented, Open Approach (ICD-10-PCS; principal; 2019-12-27 12:45)
DX: M17.12 Unilateral primary osteoarthritis, left knee (principal); Z94.84 Stem cells transplant status; E11.9 Type 2 diabetes mellitus without complications; I10 Essential (primary) hypertension; E78.5 Hyperlipidemia, unspecified; N40.0 Benign prostatic hyperplasia without lower urinary tract symptoms; Z96.651 Presence of right artificial knee joint; Z96.641 Presence of right artificial hip joint; E66.9 Obesity, unspecified; Z68.37 Body mass index [BMI] 37.0-37.9, adult; Z79.82 Long term (current) use of aspirin; Z79.84 Long term (current) use of oral hypoglycemic drugs; Z79.899 Other long term (current) drug therapy